=== PATIENT | male | born 1950 | race Caucasian/White ===

== ENCOUNTER 2018-10-08 09:47 | Observation (INO) ==
--- NOTE | 2018-10-08 10:04 | Emergency Department Note ---
Disposition Clinical Impression: Neurological deficit present Disposition: Admitted As Inpatient Condition: Good Time of Disposition: 10:04 General Adult HPI - General Chief complaint: ED Altered Mental Status Stated complaint: Altered mental status Time Seen by Provider: 10/08/18 09:56 - Related Data Home Medications Medication Instructions Recorded Confirmed Acetaminophen [Non-Aspirin] 650 mg PO Q4H PRN 05/26/18 07/29/18 Bisacodyl [Dulcolax] 10 mg RC HS PRN 05/26/18 07/29/18 Divalproex Sodium [Depakote 500 mg PO TID 05/26/18 07/29/18 Sprinkle] Ibuprofen [Ibu-200] 400 mg PO Q6H PRN 05/26/18 07/29/18 Lactulose [Enulose] 60 ml PO DAILY 05/26/18 07/29/18 Levothyroxine Sodium [Levoxyl] 125 mcg PO QAM 05/26/18 07/29/18 Metoprolol [Lopressor] 25 mg PO BID 05/26/18 07/29/18 Paliperidone [Invega] 3 mg PO QAM 05/26/18 07/29/18 Ranitidine HCl [Acid License Issuer] 150 mg PO DAILY@1500 05/26/18 07/29/18 Sodium Chloride [Sodium Chloride 1 gm PO BID 05/26/18 07/29/18 Tab] levETIRAcetam [Keppra] 250 mg PO BID 05/26/18 07/29/18 Aspirin 81 mg PO DAILY 07/29/18 07/29/18 Buspirone HCl [Buspar] 12.5 mg PO BID 07/29/18 07/29/18 Calcium Carbonate/Vitamin D3 1 tab PO BID 07/29/18 07/29/18 [Oyster Shell Calcium-Vit D Tab] carBAMazepine [CarBAMazepine] 100 mg PO TID 07/29/18 07/29/18 diazePAM [Valium] 10 mg PO DAILY PRN 07/29/18 07/29/18 traZODone [TraZODone] 50 mg PO HS 07/29/18 07/29/18 Allergies Allergy/AdvReac Type Severity Reaction Status Date / Time benzoin Allergy Mild See Verified 08/18/18 09:58 Comments cephalexin [From Keflex] Allergy See Verified 08/18/18 09:58 Comments Fish Containing Products Allergy See Verified 08/18/18 09:58 Comments fish derived Allergy See Verified 08/18/18 09:58 Comments fish oil Allergy See Verified 08/18/18 09:58 Comments fluphenazine [From Prolixin] Allergy Redness of Verified 08/18/18 09:58 Skin povidone-iodine Allergy See Verified 08/18/18 09:58 [From Betadine] Comments soap [From Betadine] Allergy See Verified 08/18/18 09:58 Comments shellfish derived AdvReac See Verified 08/18/18 09:58 Comments triethanolamine AdvReac See Verified 08/18/18 09:58 [From Cerumenex] Comments Past Medical History - Past Medical History Medical history: Reports: non-contributory, hypertension, seizures, thyroid disease, other Surgical history: Reports: non-contributory Psychiatric history: Reports: no psych history - Social History Smoking Status: Never smoker Smokeless Tobacco Status: No Alcohol use: Reports: none Drug use: Reports: none, unknown Attestation Statement - Attestation Attestation: I examined this patient and my medical decision-making was reviewed with the Resident Physician. I agree with the documented findings, disposition and treatment plan as described except to the extent set forth below. 68 year old male with developmental delay and on numerous medicatiosn for pysch related issues comes from [facility] after being dropped off this morning from his home. Last known well was indicated to be 15 comsec manager although upon reconfirmation with home facility it appears that he went to bed ok, and wokeup this mornign with these symptoms. STROKE ALERT had already been put into progress. Lindsey is a difficult historian secondary to developmental delay. It appears that his baseline per care facility is a,bulatory and today he was experincing a drift to the right side when he was walking. It appers that he otheriwse has a left sided facial droop and riht sided weakness. Lindsey is moving his left side without problems but his right side is otherwise contracted and it is difficult to assess if this is chronic or not. Mila otherwise has a history of TIAs and CVAs accordig to care facilty. Decision will be to admit, huang not a candidate for tpa
[2018-10-08 10:29] LABS: Hematocrit 38.2 % (37.5-50.1); Hemoglobin 12.6 g/dL (12.9-16.9); Immature Platelets 2.2 % (1.1-6.1); Mean Corpuscular Hemoglobin 33.2 pg (28.0-33.3); Mean Corpuscular Volume 100.5 fL (83.0-100.0); Mean Platelet Volume 9.9 fL (9.4-12.4); Red Blood Count 3.8 M/mcL (4.19-5.50); Red Cell Distribution Width 11.8 % (11.5-14.5); White Blood Count 7.9 K/mcL (4.3-11.1)
[2018-10-08 10:33] LABS: Prothrombin Time 11.1 Seconds (9.4-12.1)
[2018-10-08 10:36] LABS: Activated Partial Thrombo Time 27.2 Seconds (26.0-36.0)
[2018-10-08] MEDS ORDERED: *HR* LORazepam 2 MG/ML VIAL IVP ONE ×2 (10:43→19:38)
--- NOTE | 2018-10-08 10:44 | Emergency Department Note ---
Disposition Clinical Impression: Neurological deficit present Disposition: Admitted As Inpatient Condition: Good Forms: ED Satisfaction Letter Time of Disposition: 12:47 General Adult HPI - General Chief complaint: ED Neuro Symptoms/Deficit Stated complaint: Altered mental status Time Seen by Provider: 10/08/18 09:56 Source: patient, EMS Limitations: no limitations - History of Present Illness HPI Narrative: Mr. Allen is a 68-year-old male who presented to the ED from his adult daycare due to reported gait difficulty and drooping of his face. Per nursing facility from outpatient daycare reported he was last seen normal around 9 PM yesterday they are unsure when his symptoms started. She previously was noted to have similar symptoms involving the opposite side of his body recently which resolved within hours. He was scheduled for outpatient MRI, but due to his new symptoms developing he was presented to the ED. Due to previous history of MRDD is a poor historian unable to really any information. He does have history of seizures no previous history known history of CVA. No recently observed seizure-like activity.Information was obtained from EMS and his outpatient nursing facility. Pain Scale: 0 - Related Data Home Medications Medication Instructions Recorded Confirmed Divalproex Sodium [Depakote 500 mg PO TID 05/26/18 10/08/18 Sprinkle] Levothyroxine Sodium [Levoxyl] 125 mcg PO QAM 05/26/18 10/08/18 Metoprolol [Lopressor] 25 mg PO BID 05/26/18 10/08/18 Paliperidone [Invega] 1.5 mg PO QAM 05/26/18 10/08/18 Ranitidine HCl [Acid Gelatin Powder Mixer] 150 mg PO DAILY@1500 05/26/18 10/08/18 Sodium Chloride [Sodium Chloride 1 gm PO BID 05/26/18 10/08/18 Tab] levETIRAcetam [Keppra] 250 mg PO BID 05/26/18 10/08/18 Aspirin 81 mg PO DAILY 07/29/18 10/08/18 Buspirone HCl [Buspar] 12.5 mg PO BID 07/29/18 10/08/18 Calcium Carbonate/Vitamin D3 1 tab PO BID 07/29/18 10/08/18 [Oyster Shell Calcium-Vit D Tab] carBAMazepine [CarBAMazepine] 100 mg PO TID 07/29/18 10/08/18 Lactulose [Enulose] 60 ml PO BID 10/08/18 10/08/18 Allergies Allergy/AdvReac Type Severity Reaction Status Date / Time benzoin Allergy Mild See Verified 08/18/18 09:58 Comments cephalexin [From Keflex] Allergy See Verified 08/18/18 09:58 Comments Fish Containing Products Allergy See Verified 08/18/18 09:58 Comments fish derived Allergy See Verified 08/18/18 09:58 Comments fish oil Allergy See Verified 08/18/18 09:58 Comments fluphenazine [From Prolixin] Allergy Redness of Verified 08/18/18 09:58 Skin povidone-iodine Allergy See Verified 08/18/18 09:58 [From Betadine] Comments soap [From Betadine] Allergy See Verified 08/18/18 09:58 Comments shellfish derived AdvReac See Verified 08/18/18 09:58 Comments triethanolamine AdvReac See Verified 08/18/18 09:58 [From Cerumenex] Comments Review of Systems: Review of systems provided by EMS and outpatient nursing facility. Limitations: ROS unobtainable due to patients medical condition Constitutional: Reports: weakness. Denies: fever, chills Eyes: Reports: other (No recent changes support). Denies: eye pain, vision change Cardiovascular: Denies: chest pain, palpitations, dyspnea on exertion Respiratory: Denies: cough, wheezes Gastrointestinal: Denies: abdominal pain, nausea, vomiting Genitourinary: Denies: hematuria Musculoskeletal: Denies: back pain, joint swelling Integumentary: Denies: rash Neurological: Reports: weakness, abnormal gait Psychiatric: Reports: anxiety Past Medical History - Past Medical History Medical history: Reports: non-contributory, hypertension, seizures, thyroid disease, other Surgical history: Reports: non-contributory Psychiatric history: Reports: no psych history - Social History Smoking Status: Never smoker Smokeless Tobacco Status: No Alcohol use: Reports: none Drug use: Reports: none, unknown Physical Exam - General Limitations: no limitations General appearance: alert, in no apparent distress, other (nonverbal) - Head Head exam: atraumatic, normocephalic - Eye Eye exam: Present: other (no pupil visualized in right eye). Absent: scleral icterus - ENT ENT exam: normal exam, normal oropharynx - Neck Neck exam: Present: normal inspection, full ROM - Chest Chest inspection: Present: normal inspection, symmetric chest wall rise. Absent: tenderness - Respiratory Respiratory exam: Present: normal lung sounds bilaterally. Absent: respiratory distress, wheezes - Cardiovascular Cardiovascular exam: Present: regular rate, normal rhythm, +S1, +S2 - Abdominal Exam Abdominal exam: Present: soft, Non-Tender. Absent: distention, guarding, rigidity - Extremities Exam Extremities exam: Present: normal inspection, other (Decreased movement of right leg). Absent: tenderness, pedal edema, joint swelling - Neurological Exam Neurological exam: Present: alert, oriented X3, other (Alert but not oriented to person place or time. Right sided facial drop and left sided weakness.) - Psychiatric Psychiatric exam: Present: normal affect, normal mood, anxious - Skin Skin exam: Present: warm, dry, intact Course Vital Signs Temperature 98.5 F 10/08/18 09:55 Pulse Rate 93 10/08/18 09:55 Respiratory Rate 22 10/08/18 09:55 Blood Pressure 162/85 10/08/18 09:55 O2 Sat by Pulse Oximetry 97 10/08/18 09:55 Temperature 98.5 F 10/08/18 09:55 Pulse Rate 77 10/08/18 11:35 Respiratory Rate 18 10/08/18 11:35 Blood Pressure 176/84 10/08/18 11:35 O2 Sat by Pulse Oximetry 97 10/08/18 11:35 Oxygen Delivery Oxygen Delivery Room Air Medical Decision Making - [facility] Narrative Medical decision making narrative: Alejandro is a 68-year-old male presented to the ED from outpatient adult daycare due to gait changes and drooping of his face. He was last seen well at 9 PM yesterday. Nursing facility is unsure of any recent falls. He does have MRDD and unable to provide any history. Distally has history of seizure and has been taking his medications as prescribed. No recent seizures observed. Stroke alert was called. Head CT of the head which did not show any acute intracranial abnormalities. [facility] stroke team evaluated the patient. Dylan did not believe his symptoms were secondary to a stroke and thought it could be secondary to possible previous seizure or unknown cause given his significant past medical history of MRDD. They suggested observing him for 24 hours and would benefit from outpatient versus inpatient MRI. - Medical Records Medical records reviewed: Yes I reviewed the patient's medical records. - Lab Data Lab results reviewed: Yes I reviewed the patient's lab results. Result diagrams: 10/08/18 10:18 10/08/18 10:23 Lab Results 10/08/18 10/08/18 10/08/18 Range/Units 09:54 10:18 10:18 WBC 7.9 (4.3-11.1) K/mcL RBC 3.80 L (4.19-5.50) M/mcL Hgb 12.6 L (12.9-16.9) g/dL Hct 38.2 (37.5-50.1) % MCV 100.5 H (83.0-100.0) fL MCH 33.2 (28.0-33.3) pg MCHC 33.0 (31.6-35.5) g/dL RDW 11.8 (11.5-14.5) % Plt Count 152 (140-400) K/mcL MPV 9.9 (9.4-12.4) fL Immature Plt Fraction 2.2 (1.1-6.1) % PT 11.1 (9.4-12.1) Seconds INR 1.0 APTT 27.2 (26.0-36.0) Seconds Sodium (136-145) mEq/L Potassium (3.5-5.1) mEq/L Chloride (98-107) mEq/L Carbon Dioxide (23-29) mEq/L BUN (8-23) mg/dL Creatinine (0.70-1.30) mg/dL Est GFR ( Amer) (> 60) Est GFR (Non-Af Amer) (> 60) BUN/Creatinine Ratio (6-26) Glucose (70-105) mg/dL POC Glucose 105 H (70-99) mg/dL Calculated Osmolality (280-300) Calcium (8.6-10.3) mg/dL Troponin I (< 0.04) ng/mL Urine Color (Yellow) Urine Clarity (Clear) Urine pH (5.0-8.0) pH Units Ur Specific [place] (1.010-1.025) Urine Protein (Neg-Trace) mg/dL Urine Glucose (UA) (Normal) mg/dL Urine Ketones (Negative) mg/dL Urine Blood (Negative) Urine Nitrite (Negative) Urine Bilirubin (Negative) Urine Urobilinogen (Normal) mg/dL Ur Leukocyte Esterase (Negative) Ur Culture Indicated? (NO) Urine Opiates Screen (Sdipdu=131) ng/mL Ur Barbiturates Screen (Pfzjue=924) ng/mL Ur Phencyclidine Scrn (Cutoff=25) ng/mL Ur Amphetamines Screen (Ojrcqx=5004) ng/mL U Benzodiazepines Scrn (Cwibjt=024) ng/mL Urine Cocaine Screen (Cutoff= 300) ng/mL U Marijuana (THC) Screen (Cutoff = 50) ng/mL Ur Drug Screen Interp Ethyl Alcohol (Less than 10) mg/dL 10/08/18 10/08/18 10/08/18 Range/Units 10:23 11:03 11:03 WBC (4.3-11.1) K/mcL RBC (4.19-5.50) M/mcL Hgb (12.9-16.9) g/dL Hct (37.5-50.1) % MCV (83.0-100.0) fL MCH (28.0-33.3) pg MCHC (31.6-35.5) g/dL RDW (11.5-14.5) % Plt Count (140-400) K/mcL MPV (9.4-12.4) fL Immature Plt Fraction (1.1-6.1) % PT (9.4-12.1) Seconds INR APTT (26.0-36.0) Seconds Sodium 141 (136-145) mEq/L Potassium 4.2 (3.5-5.1) mEq/L Chloride 108 H (98-107) mEq/L Carbon Dioxide 27 (23-29) mEq/L BUN 31 H (8-23) mg/dL Creatinine 0.75 (0.70-1.30) mg/dL Est GFR ( Amer) > 60 (> 60) Est GFR (Non-Af Amer) > 60 (> 60) BUN/Creatinine Ratio 41 H (6-26) Glucose 90 (70-105) mg/dL POC Glucose (70-99) mg/dL Calculated Osmolality 298 (280-300) Calcium 9.4 (8.6-10.3) mg/dL Troponin I < 0.03 (< 0.04) ng/mL Urine Color Yellow (Yellow) Urine Clarity Clear (Clear) Urine pH 6.0 (5.0-8.0) pH Units Ur Specific [place] 1.008 L (1.010-1.025) Urine Protein Negative (Neg-Trace) mg/dL Urine Glucose (UA) Normal (Normal) mg/dL Urine Ketones Negative (Negative) mg/dL Urine Blood Negative (Negative) Urine Nitrite Negative (Negative) Urine Bilirubin Negative (Negative) Urine Urobilinogen Normal (Normal) mg/dL Ur Leukocyte Esterase Negative (Negative) Ur Culture Indicated? NO (NO) Urine Opiates Screen Negative (Ygsoww=048) ng/mL Ur Barbiturates Screen Negative (Uxotss=503) ng/mL Ur Phencyclidine Scrn Negative (Cutoff=25) ng/mL Ur Amphetamines Screen Negative (Vtbapo=7122) ng/mL U Benzodiazepines Scrn Negative (Sizanf=772) ng/mL Urine Cocaine Screen Negative (Cutoff= 300) ng/mL U Marijuana (THC) Screen Negative (Cutoff = 50) ng/mL Ur Drug Screen Interp See Below Ethyl Alcohol < 10 (Less than 10) mg/dL - Radiology Data Radiology results reviewed: Yes I reviewed the patient's radiology results.
[2018-10-08 10:55] LABS: BUN/Creatinine Ratio 41 (6-26); Blood Urea Nitrogen 31 mg/dL (8-23); Calcium 9.4 mg/dL (8.6-10.3); Carbon Dioxide 27 mEq/L (23-29); Chloride 108 mEq/L (98-107); Ethanol < 10 mg/dL (Less than 10); Glucose 90 mg/dL (70-105); Osmolality,Calculated 298 (280-300); Potassium 4.2 mEq/L (3.5-5.1); Sodium 141 mEq/L (136-145); eGFR For African Americans > 60 (> 60); eGFR For Non-African Americans > 60 (> 60)
[2018-10-08 10:56] LABS: Troponin I < 0.03 ng/mL (< 0.04)
[2018-10-08 11:13] LABS: Bilirubin,Urine Negative (Negative); Blood,Urine Negative (Negative); Clarity,Urine Clear (Clear); Color,Urine Yellow (Yellow); Glucose,Urine (UA) Normal (Normal); Ketones,Urine Negative (Negative); Leukocyte Esterase,Urine Negative (Negative); Nitrite,Urine Negative (Negative); Protein,Urine Negative (Neg-Trace); Specific Gravity,Urine 1.008 (1.010-1.025); Urobilinogen,Urine Normal (Normal)
[2018-10-08 11:22] LABS: Amphetamine Screen,Urine Negative ng/mL (Cutoff=1000); Barbiturate Screen,Urine Negative ng/mL (Cutoff=200); Benzodiazepines Screen,Urine Negative ng/mL (Cutoff=200); Cannabinoid Screen,Urine Negative ng/mL (Cutoff = 50); Cocaine Screen,Urine Negative ng/mL (Cutoff= 300); Opiate Screen,Urine Negative ng/mL (Cutoff=300); Phencyclidine Screen,Urine Negative ng/mL (Cutoff=25)
[2018-10-08] MEDS ORDERED: Naloxone 0.4 MG/ML INJ IVP PRN (13:47)
[2018-10-08] MEDS ORDERED: Ondansetron 4 MG/2 ML VIAL IVP PRN (13:47)
--- NOTE | 2018-10-08 14:17 | Internal Med History&Physical ---
Date of Encounter: 10/08/18 Time of Encounter: 13:30 Internal Medicine - H&P: HPI Chief complaint: Left facial droop, right-sided weakness Admitted From: Home History of present illness: Mr. Allen is a 68 year old male with hx of MRDD, seizure, ?CVA/TIA, hypertension, who presented from [facility] due to concern of left-sided facial droop and unsteady gait. No history is obtainable from the pt as he is non- verbal at baseline hence further history was obtained from Carina Seo who is listed as emergency contact. She states that since July of this year, he has been experiencing frequent episodes of L sided facial droop and foaming around his mouth. It would resolve in few minutes but was recurring more frequently for the past few days hence was brought to the ED for further evaluation. No episodes of convulsion, loss of bowel/bladder function, or uprolling of the eyes noted. She does not recall any recent illness for patient. Patient has contractures of the upper extremities and is unable to participate in any neurological exam due to inability to follow commands. In the ED, he was afebrile and hemodynamically stable. Labwork was unremarkable including CBC, BMP, troponin, urinalysis, and urine drug screen. Head CT did not show any acute intracranial abnormality. Although EKG was reported as Afib, it contained a lot of baseline artifcats and R-R interval looks regular. Patient was admitted for further management. Past Med Surg Social Fam HX - Past Medical History Medical history: non-contributory, hypertension, seizures, thyroid disease, other Additional medical history: PICA, blind in Right eye. Psychiatric history: no psych history - Past Surgical History Surgical History: non-contributory - Social History Smoking Status: Never smoker Smokeless Tobacco Status: No Alcohol use: none Drug use: none, unknown - Additional Family History Additional family history: Unable to obtain due to mental status Internal Medicine - H&P: Meds Divalproex Sodium [Depakote Sprinkle] 500 mg PO TID 05/26/18 [History] Levothyroxine Sodium [Levoxyl] 125 mcg PO QAM 05/26/18 [History] Metoprolol [Lopressor] 25 mg PO BID 05/26/18 [History] Paliperidone [Invega] 1.5 mg PO QAM 05/26/18 [History] Ranitidine HCl [Acid Real Estate Account Executive] 150 mg PO DAILY@1500 05/26/18 [History] Sodium Chloride [Sodium Chloride Tab] 1 gm PO BID 05/26/18 [History] levETIRAcetam [Keppra] 250 mg PO BID 05/26/18 [History] Aspirin 81 mg PO DAILY 07/29/18 [History] Buspirone HCl [Buspar] 12.5 mg PO BID 07/29/18 [History] Calcium Carbonate/Vitamin D3 [Oyster Shell Calcium-Vit D Tab] 1 tab PO BID 07/29/18 [History] carBAMazepine [CarBAMazepine] 100 mg PO TID 07/29/18 [History] Lactulose [Enulose] 60 ml PO BID 10/08/18 [History] Allergy/AdvReac Type Severity Reaction Status Date / Time benzoin Allergy Mild See Verified 08/18/18 09:58 Comments cephalexin [From Keflex] Allergy See Verified 08/18/18 09:58 Comments Fish Containing Products Allergy See Verified 08/18/18 09:58 Comments fish derived Allergy See Verified 08/18/18 09:58 Comments fish oil Allergy See Verified 08/18/18 09:58 Comments fluphenazine [From Prolixin] Allergy Redness of Verified 08/18/18 09:58 Skin povidone-iodine Allergy See Verified 08/18/18 09:58 [From Betadine] Comments soap [From Betadine] Allergy See Verified 08/18/18 09:58 Comments shellfish derived AdvReac See Verified 08/18/18 09:58 Comments triethanolamine AdvReac See Verified 08/18/18 09:58 [From Cerumenex] Comments ROS unobtainable: due to mental status All Systems PM: A 10-system review of systems was performed and is negative for pertinent findings except as documented above in the HPI. - Constitutional Vitals: Temp Pulse Resp BP Pulse Ox 98.5 F 62 14 144/58 100 10/08/18 09:55 10/08/18 13:21 10/08/18 13:21 10/08/18 13:21 10/08/18 13:21 Exam: General: Alert, non-verbal. Appears comfortable. HEENT:pupils equal, round and reactive. Cardiovascular:Normal S1 & S2, No JVD. Pulse regular. Lungs: clear to auscultation, no wheezes/rales Abdomen:Soft, non-tender, no rigidity. Extremities: Contractures of the bilateral upper extremities noted Neurological: Unable to follow commands for full neurological exam but no obvious facial droop seen Skin:Normal color, no rash, no lesions. Pulses:Carotid and radial pulses normal +2. Rest of the physical exam is non contributory Internal Med - H&P Results - Labs CBC & Chem 7: 10/08/18 10:18 10/08/18 10:23 Labs: Short CBC 10/08/18 Range/Units 10:18 WBC 7.9 (4.3-11.1) K/mcL Hgb 12.6 L (12.9-16.9) g/dL Hct 38.2 (37.5-50.1) % Plt Count 152 (140-400) K/mcL BMP 10/08/18 10:23 Sodium 141 Potassium 4.2 Chloride 108 H Carbon Dioxide 27 BUN 31 H Creatinine 0.75 Glucose 90 Calcium 9.4 Cardiac Enzymes 10/08/18 Range/Units 10:23 Troponin I < 0.03 (< 0.04) ng/mL Urine 10/08/18 Range/Units 11:03 Urine Color Yellow (Yellow) Urine Clarity Clear (Clear) Urine pH 6.0 (5.0-8.0) pH Units Ur Specific [place] 1.008 L (1.010-1.025) Urine Protein Negative (Neg-Trace) mg/dL Urine Glucose (UA) Normal (Normal) mg/dL - Impressions ITS Impressions Chest X-Ray 10/08/18 09:57 IMPRESSION: Persistently enlarged cardiomediastinal silhouette. No focal consolidation, pneumothorax, or significant pleural effusion. D/ / Enrique Elizalde MD / Enrique Elizalde MD Interpreting Provider: Enrique Elizalde MD Head CT 10/08/18 09:57 IMPRESSION: No acute intracranial abnormality. Findings were discussed with Dr. Mayo 10:20 a.m. 10/08/2018 D/ / Caio Dinh MD / Caio Dinh MD Interpreting Provider: Caio Dinh MD - Assessment and Plan (1) TIA (transient ischemic attack) Current Visit: Yes Status: Acute Assessment and plan: Patient has been expressing frequent episodes of left-sided facial droop since 07/2018. However, he does also have episodes of foaming around his mouth associated with it that would last a few mins. ?seizure did not get MRI nor carotid doppler done at that time CT head -ve for acute intracranial abnormality will obtain MRI and carotid doppler this time Unable to participate in NIHSS due to mental status telemetry, repeat EKG Add statin to aspirin check A1c. Lipid panel was checked recently in 08/2018 PT/OT consult neuro (2) Seizure Current Visit: Yes Status: Chronic Assessment and plan: His current presentation is also concerning for seizure resume home meds MRI as above Neuro consult (3) HTN (hypertension) Current Visit: No Status: Chronic Assessment and plan: Hold off on home meds allow for permissive hypertension Qualifiers: Hypertension type: unspecified Qualified Code(s): I10 - Essential (primary) hypertension (4) Hypothyroid Current Visit: No Status: Chronic Assessment and plan: Resume home meds Qualifiers: Hypothyroidism type: unspecified Qualified Code(s): E03.9 - Hypothyroidism, unspecified (5) DVT prophylaxis Current Visit: No Status: Acute Assessment and plan: SQ heparin - Summary of Assessment and Plan Summary of Assessment and Plan: Discussed with neurology CHILD CARE ASSOCIATE TEACHER - Time Spent With Patient Total time spent is greater than 50% in coordination of care (as documented) at patient's floor/unit and/or counseling patient: Greater than 35 minutes
--- NOTE | 2018-10-08 14:57 | Neurology - Consult Note ---
<Perry Daniel J - Last Filed: 10/08/18 15:44> Date of Encounter: 10/08/18 Time of Encounter: 14:44 Assessment and Plan (1) Neurological deficit present Current Visit: Yes Status: Acute Presents for evaluation of intermittent left sided facial droop and unsteady gait He is MRDD with chronic encephalopahty and currently lives in a skilled nursing setting His neurological exam is limited by his mental state and he does not follow commands. There is a very mild left facial droop on exam. The left eye occular motility is intact and he will follow me throughout the room. Blind in right eye. Moves all 4 extremities spontaneously and will move them to gentle tactile stimulus. He has a h/o seizures but no seizure activity has been witnessed since admission CT head unremarkable Given his waxing and waning sx we will proceed with a w/u to r/o seizures and an acute neurovascular event PLAN: EEG in the a.m. Check valproate and carbamazepine level now Echocardiogram Carotid Duplex exam MRI brain Agree with ASA, and Statin C/W neurological assessments per protocol Implement seizure precautions Further recommendations pending workup History of Present Illness Chief complaint: intermittent facial droop and unstready gait HPI: Mr. Allen is a 68 year old male with a PMH of MRDD, seizures, CVA/TIA, and HTN who presents from a skilled nursing with a chief complaint of intermittent left- sided facial droop and unsteady gait. It should be noted that the patient is non verbal in the setting of MRDD and there was no skilled nursing technical sales representative present during my exam. Therefore, all information was obtained from provider to provider report and chart review. It is reported that since July of 2018 the patient has been having intermittent left sided facial droop and reported ataxia. Patient is unable to follow commands or participate in the neurologic examination. His B/L upper extremities are contractured but he is able able to somewhat move them. He moves b/l legs spontaneously and will follow this provider throughout the room with intact extraoccular motility. Review of labs are unremarkable, urine toxin screen is negative as is the UA. CT of the head unremarkable for an acute intracranial abnormality. Given waxing and waning sx there is concern for underlying seizure etiology given his hx. Additionally, an acute neurovascular also would need to be ruled out. Past Med Surg Social Fam HX - Past Medical History Medical history: non-contributory, hypertension, seizures, thyroid disease, other Additional medical history: PICA, blind in Right eye. Psychiatric history: no psych history - Past Surgical History Surgical History: non-contributory - Social History Smoking Status: Never smoker Smokeless Tobacco Status: No Alcohol use: none Drug use: none, unknown - Additional Family History Additional family history: Attempted to obtain but unable to d/t MRDD. No skilled nursing technical sales representative present at the time of my assessment. Medications and Allergies Divalproex Sodium [Depakote Sprinkle] 500 mg PO TID 05/26/18 [History] Levothyroxine Sodium [Levoxyl] 125 mcg PO QAM 05/26/18 [History] Metoprolol [Lopressor] 25 mg PO BID 05/26/18 [History] Paliperidone [Invega] 1.5 mg PO QAM 05/26/18 [History] Ranitidine HCl [Acid Technology Solutions Architect] 150 mg PO DAILY@1500 05/26/18 [History] Sodium Chloride [Sodium Chloride Tab] 1 gm PO BID 05/26/18 [History] levETIRAcetam [Keppra] 250 mg PO BID 05/26/18 [History] Aspirin 81 mg PO DAILY 07/29/18 [History] Buspirone HCl [Buspar] 12.5 mg PO BID 07/29/18 [History] Calcium Carbonate/Vitamin D3 [Oyster Shell Calcium-Vit D Tab] 1 tab PO BID 07/29/18 [History] carBAMazepine [CarBAMazepine] 100 mg PO TID 07/29/18 [History] Lactulose [Enulose] 60 ml PO BID 10/08/18 [History] Allergy/AdvReac Type Severity Reaction Status Date / Time benzoin Allergy Mild See Verified 08/18/18 09:58 Comments cephalexin [From Keflex] Allergy See Verified 08/18/18 09:58 Comments Fish Containing Products Allergy See Verified 08/18/18 09:58 Comments fish derived Allergy See Verified 08/18/18 09:58 Comments fish oil Allergy See Verified 08/18/18 09:58 Comments fluphenazine [From Prolixin] Allergy Redness of Verified 08/18/18 09:58 Skin povidone-iodine Allergy See Verified 08/18/18 09:58 [From Betadine] Comments soap [From Betadine] Allergy See Verified 08/18/18 09:58 Comments shellfish derived AdvReac See Verified 08/18/18 09:58 Comments triethanolamine AdvReac See Verified 08/18/18 09:58 [From Cerumenex] Comments ROS unobtainable: due to mental status All Systems: The remainder of the systems were reviewed and are negative Physical Examination - Vital Signs Vital Signs: Initial Vital Signs Temp Pulse Resp BP Pulse Ox 98.5 F 93 22 162/85 97 10/08/18 09:55 10/08/18 09:55 10/08/18 09:55 10/08/18 09:55 10/08/18 09:55 - Exam Exam: Examination: Is complicated by the patient's mental state with a history of MRDD and chronic encephalopathy General Examination: *CONSTITUTIONAL: Awake, alert and nonverbal, no acute distress *GENERAL APPEARANCE OF PATIENT generally ill appearing elderly male *EYES: Left pupil round, reactive to light and accommodation, conjunctiva clear. Right blindness *CARDIOVASCULAR no peripheral edema, distal temperature normal, dorsalis pedis pulses normal. see vital signs Musculoskeletal: *GAIT AND STATION deferred d/t risk for falls *ASSESSMENT OF MUSCLE STRENGTH IN THE UPPER AND LOWER EXTREMITIES bilateral arm contractures but move in a limited ROM spontaneously. He will move B/L legs spontaneously *MUSCLE TONE IN THE UPPER AND LOWER EXTREMITIES bilateral arm contractures Neurological: *ORIENTATION awake and alert and will look at you when calling his name. Otherwise he is nonverbal and unable to follow commands *LANGUAGE FUNCTION nonverbal *CN II optic fundi were normal *CN III,IV, left pupil round and reactive to light and accommodation. Left eye with intact ocular motility. Chronic right eye blindness *CN V, VII very mild left facial droop *CN VIII shows no significant hearing loss on exam *CN XI Although had left and right and follow this provider throughout the room when spoken to *SENSORY EXAMINATION moves all 4 extremities to gentle tactile stimulus *REFLEXES: DTR's were absent diffusely *PAIN LEVEL 0/10 Results - Laboratory Findings CBC and BMP: 10/08/18 10:18 10/08/18 10:23 Abnormal lab findings: Abnormal lab results RBC 3.80 M/mcL (4.19-5.50) L 10/08/18 10:18 Hgb 12.6 g/dL (12.9-16.9) L 10/08/18 10:18 MCV 100.5 fL (83.0-100.0) H 10/08/18 10:18 Chloride 108 mEq/L (98-107) H 10/08/18 10:23 BUN 31 mg/dL (8-23) H 10/08/18 10:23 41 (6-26) H 10/08/18 10:23 POC Glucose 105 mg/dL (70-99) H 10/08/18 09:54 Ur Specific [place] 1.008 (1.010-1.025) L 10/08/18 11:03 - Diagnostic Findings Additional findings: CT/CT stroke alert head wo con IMPRESSION: No acute intracranial abnormality. Consult Discharge Plan - Plan Referrals: Daniela Herring MD [Primary Care Provider] - <KeyKojo - Last Filed: 10/08/18 16:19> Date of Encounter: 10/08/18 Assessment and Plan (1) Neurological deficit present Current Visit: Yes Status: Acute History of Present Illness HPI: Mr. Allen is a 68 year old male All Systems: The remainder of the systems were reviewed and are negative Physical Examination - Vital Signs Vital Signs: Initial Vital Signs Temp Pulse Resp BP Pulse Ox 98.5 F 93 22 162/85 97 10/08/18 09:55 10/08/18 09:55 10/08/18 09:55 10/08/18 09:55 10/08/18 09:55 Results - Laboratory Findings CBC and BMP: 10/08/18 10:18 10/08/18 10:23 Abnormal lab findings: Abnormal lab results RBC 3.80 M/mcL (4.19-5.50) L 10/08/18 10:18 Hgb 12.6 g/dL (12.9-16.9) L 10/08/18 10:18 MCV 100.5 fL (83.0-100.0) H 10/08/18 10:18 Chloride 108 mEq/L (98-107) H 10/08/18 10:23 BUN 31 mg/dL (8-23) H 10/08/18 10:23 41 (6-26) H 10/08/18 10:23 POC Glucose 105 mg/dL (70-99) H 10/08/18 09:54 Ur Specific [place] 1.008 (1.010-1.025) L 10/08/18 11:03
[2018-10-08] MEDS ORDERED: Famotidine 20 MG TABLET PO SCH (15:00)
[2018-10-08] MEDS ORDERED: Perflutren Lipid Microsphere 1.3 ML in 0.9 % Sodium Chloride 8.7 ML IVP ONE (15:38)
--- NOTE | 2018-10-08 16:16 | Electrocardiograph Report ---
[place] [id number] Test Date: 2018-10-08 Pat Name: Chase Allen Department: [id number] Room: [facility] Gender: M [place]iler: : 1950 Requested By: Zonia Mayo Order Number: [id number] Reading MD: Chase Hernandez Measurements Intervals [place] Rate: 80 P: [place]: QRS: -40 QRSD: 127 T: 92 QT: 371 QTc: 428 Interpretive Statements Probable sinus rhythm IVCD, consider atypical RBBB Artifact in lead(s) I II III aVR aVL V1 V2 and baseline wander in lead(s) V1 Electronically Signed On 10-08-2018 16:14:56 EDT by Chase Hernandez
[2018-10-08 16:20] LABS: Carbamazepine (Tegretol) 10 mcg/mL (4-12); Valproate 79 mcg/mL (50-100)
[2018-10-08] MEDS: Divalproex Sodium 125 MG CAPSULE PO SCH ×2 (17:45→20:29)
[2018-10-08] MEDS: CarBAMazepine 100 MG TABLET PO SCH ×2 (17:46→20:30)
[2018-10-08] MEDS: levETIRAcetam 250 MG TABLET PO SCH (20:30)
[2018-10-08] MEDS: Lactulose Oral Soln 20 GM/30 ML UDC PO SCH (20:30)
[2018-10-09 06:15] LABS: Basophils # 0.1 K/mcL (0.0-0.2); Eosinophils # 0.4 K/mcL (0.0-0.6); Eosinophils % 6.9 %; Hematocrit 34.7 % (37.5-50.1); Hemoglobin 11.8 g/dL (12.9-16.9); Immature Granulocytes % 0.8 % (0-4); Lymphocytes % 37.9 %; Mean Corpuscular Volume 96.9 fL (83.0-100.0); Mean Platelet Volume 9.5 fL (9.4-12.4); Monocytes # 0.6 K/mcL (0.0-1.3); Monocytes % 10.5 %; Neutrophils # 2.3 K/mcL (1.6-8.9); Platelet Count 158 K/mcL (140-400); Red Blood Count 3.58 M/mcL (4.19-5.50); Red Cell Distribution Width 11.6 % (11.5-14.5); Segmented Neutrophils % 42.9 %; White Blood Count 5.3 K/mcL (4.3-11.1)
[2018-10-09 06:32] LABS: BUN/Creatinine Ratio 35 (6-26); Blood Urea Nitrogen 24 mg/dL (8-23); Calcium 9.2 mg/dL (8.6-10.3); Carbon Dioxide 28 mEq/L (23-29); Chloride 104 mEq/L (98-107); Glucose 87 mg/dL (70-105); Osmolality,Calculated 295 (280-300); Sodium 141 mEq/L (136-145); eGFR For African Americans > 60 (> 60); eGFR For Non-African Americans > 60 (> 60)
[2018-10-09 07:18] VITALS: BP 119/57
[2018-10-09] MEDS ORDERED: *HR* LORazepam 2 MG/ML VIAL IVP ONE (08:46)
[2018-10-09 08:51] LABS: Estimated Average Glucose 100 mg/dl
[2018-10-09] MEDS: Lactulose Oral Soln 20 GM/30 ML UDC PO SCH (09:00)
[2018-10-09] MEDS: levETIRAcetam 250 MG TABLET PO SCH ×2 (09:00→09:59)
[2018-10-09] MEDS ORDERED: Aspirin 81 MG TAB.CHEW PO SCH (09:00)
[2018-10-09] MEDS ORDERED: PALIPERIDONE 1.5 MG PO SCH (09:00)
[2018-10-09] MEDS: CarBAMazepine 100 MG TABLET PO SCH ×2 (09:00→09:57)
[2018-10-09] MEDS: Divalproex Sodium 125 MG CAPSULE PO SCH ×2 (09:01→09:58)
--- NOTE | 2018-10-09 09:42 | Neurology Progress Note ---
<Perry Daniel J - Last Filed: 10/09/18 09:37> Date of Encounter: 10/09/18 Time of Encounter: 09:37 Assessment and Plan (1) Neurological deficit present Current Visit: Yes Status: Acute Clinically, he remains stable overnight. No return of facial droop and no witnessed seizure activity overnight. An MRI of the brain was completed and was found to be negative for an acute infarct. Echocardiogram did not identify PFO, the carotid duplex study identified nonstenotic plaque in the right carotid however the right carotid was unable to be completed due to the patient's mental status as he is uncooperative. His carbamazepine and Valproate levels were checked and were withing the therapeutic range. He will get an EEG today to evaluate for seizure activity. Neurology will continue to follow PLAN: EEG pending C/W ASA, and Statin C/W neurological assessments per protocol C/W seizure precautions Further recommendations pending the rest of the workup Subjective Principal diagnosis: Concerns for left facial droop, unsteady gait and seizures Interval history: The patient was seen in follow-up at the bedside at the critical decision making unit. Today he is awake, and appears guarded while vigilantly watching me as I walked throughout the room and he is moving all 4 extremities spontaneously. He does not follow commands. He is getting ready to undergo an EEG. There is no assisted sales representative from the [facility] present at this time. Objective - Constitutional Vitals: Temp Pulse Resp BP Pulse Ox 98.1 F 69 16 119/57 95 10/08/18 23:00 10/09/18 07:00 10/09/18 07:00 10/09/18 07:00 10/09/18 07:00 Exam: Examination: Is complicated by the patient's mental state with a history of MRDD and chronic encephalopathy General Examination: *CONSTITUTIONAL: Awake, and nonverbal. He is somewhat agitated today on exam *GENERAL APPEARANCE OF PATIENT generally ill appearing elderly male *EYES: Left pupil round, reactive to light and accommodation, conjunctiva clear. Right blindness *CARDIOVASCULAR no peripheral edema, distal temperature normal, dorsalis pedis pulses normal. see vital signs Musculoskeletal: *GAIT AND STATION deferred d/t risk for falls *ASSESSMENT OF MUSCLE STRENGTH IN THE UPPER AND LOWER EXTREMITIES bilateral arm contractures but he will move then in a limited ROM spontaneously. He will move B/L legs spontaneously *MUSCLE TONE IN THE UPPER AND LOWER EXTREMITIES bilateral arm contractures Neurological: *ORIENTATION awake and alert and will look at you when calling his name. Otherwise he is nonverbal and unable to follow commands *LANGUAGE FUNCTION nonverbal *CN II optic fundi were normal *CN III,IV, left pupil round and reactive to light and accommodation. Left eye with intact ocular motility. Chronic right eye blindness *CN V, VII no facial asymmetry seen *CN VIII shows no significant hearing loss on exam *CN XI He moves his head left and right and follows this provider throughout the room *SENSORY EXAMINATION moves all 4 extremities to gentle tactile stimulus *REFLEXES: DTR's were absent diffusely *PAIN LEVEL 0/10 Results - Laboratory Findings CBC and BMP: 10/09/18 05:48 10/09/18 05:48 Abnormal lab findings: Abnormal lab results RBC 3.58 M/mcL (4.19-5.50) L 10/09/18 05:48 Hgb 11.8 g/dL (12.9-16.9) L 10/09/18 05:48 Hct 34.7 % (37.5-50.1) L 10/09/18 05:48 MCV 100.5 fL (83.0-100.0) H 10/08/18 10:18 Chloride 108 mEq/L (98-107) H 10/08/18 10:23 BUN 24 mg/dL (8-23) H 10/09/18 05:48 0.68 mg/dL (0.70-1.30) L 10/09/18 05:48 35 (6-26) H 10/09/18 05:48 POC Glucose 105 mg/dL (70-99) H 10/08/18 09:54 Ur Specific [place] 1.008 (1.010-1.025) L 10/08/18 11:03 Consult Discharge Plan - Plan Instructions: Hypothyroidism (DC), Chronic Hypertension (DC) Additional Instructions: Discussed with Nurse Winifred, that patient needs out patient MRI of head switched to c-spine per Dr. Rodriguez. Expressed understanding. 3B secretary office clerk attempted to change, unable to. Updated Winifred on medications and testing done. Referrals: Daniela Herring MD [Primary Care Provider] - (appt has been requested. ) Misael Seo DO [Partnered Physician] - Prescriptions: Atorvastatin [Lipitor] 40 mg PO HS #30 tablet <Kojo Mackey - Last Filed: 10/09/18 14:13> Date of Encounter: 10/09/18 Assessment and Plan (1) Neurological deficit present Current Visit: Yes Status: Acute Objective - Constitutional Vitals: Temp Pulse Resp BP Pulse Ox 98.1 F 69 16 119/57 95 10/08/18 23:00 10/09/18 07:00 10/09/18 07:00 10/09/18 07:00 10/09/18 07:00 Results - Laboratory Findings CBC and BMP: 10/09/18 05:48 10/09/18 05:48 Abnormal lab findings: Abnormal lab results RBC 3.58 M/mcL (4.19-5.50) L 10/09/18 05:48 Hgb 11.8 g/dL (12.9-16.9) L 10/09/18 05:48 Hct 34.7 % (37.5-50.1) L 10/09/18 05:48 MCV 100.5 fL (83.0-100.0) H 10/08/18 10:18 Chloride 108 mEq/L (98-107) H 10/08/18 10:23 BUN 24 mg/dL (8-23) H 10/09/18 05:48 0.68 mg/dL (0.70-1.30) L 10/09/18 05:48 35 (6-26) H 10/09/18 05:48 POC Glucose 105 mg/dL (70-99) H 10/08/18 09:54 Ur Specific [place] 1.008 (1.010-1.025) L 10/08/18 11:03
--- NOTE | 2018-10-09 10:05 | EEG/EMG/Oth Biometrics Report ---
EEG Procedure Report Date of procedure: 10/09/18 EEG Procedure: Routine EEG Procedure Note: This EEG was acquired with standard international 10-20 system with EKG recording. The background EEG activity was characterized by the presence of posterior dominant alpha rhythm with the best frequency up to 11 Hz. The background activity was reactive to eye openings. Sleep stages were not identified during this tracing. Drowsiness was characterized by drop off of posterior dominant Alpha rhythm. There are no electrographic seizures identified during this tracing. There are no epileptiform discharges or focal slowing noted during this recording. Photic stimulation produced and produced no abnormalities. Hyperventilation procedure not performed. EKG tracing showed no significant cardiac dysrhythmia. Impression: This is essentially a normal awake and drowsy EEG. Clinical Correlation: Normal EEGs, however, do not exclude epilepsy. Clinical correlation is advised.
[2018-10-09] MEDS ORDERED: Haloperidol Lactate 5 MG/ML VIAL IVP ONE (12:22)
[2018-10-09] MEDS ORDERED: Haloperidol Lactate 5 MG/ML VIAL ONE (12:26)
--- NOTE | 2018-10-09 12:37 | Discharge Summary ---
- NOTES TO OUTPATIENT PROVIDER Notes to Outpatient Provider: Follow up with NEurology as originally scheduled and obtain MRI C-spine instead of MRI brain as it was done while inpatient Orders not resulted at time of discharge: Pending orders 10/08/18 13:50 EKG [ECG 12 lead ECG] [ECG] Stat Date of Encounter: 10/09/18 Time of Encounter: 10:00 - Discharge Diagnosis (1) Neurological deficit present Priority: Primary Status: Acute (2) Seizure Priority: Secondary Status: Chronic (3) HTN (hypertension) Priority: Secondary Status: Chronic Qualifiers: Hypertension type: unspecified Qualified Code(s): I10 - Essential (primary) hypertension (4) Hypothyroid Priority: Secondary Status: Chronic Qualifiers: Hypothyroidism type: unspecified Qualified Code(s): E03.9 - Hypothyroidism, unspecified (5) DVT prophylaxis Priority: Secondary Status: Acute Hospital course: Mr. Allen is a 68 year old male with hx of MRDD, seizure, ?CVA/TIA, hypertension, who presented from long-term due to concern of left-sided facial droop and unsteady gait. He apparently had a similar episode in July this year but could not complete MRI brain and carotid Doppler at that time. MRI brain was done this time and although was limited by motion artifact, no obvious acute stroke was identified. Carotid Doppler showed nonstenotic plaque in the left carotid, R one incomplete due to his mental status and inability to cooperate. Both valproic acid and carbamazepine level were within therapeutic ranges. Seen in consultation with neurology and EEG was performed which was essentially normal. Statin was added for the possibility of TIA and he will be discharged with outpatient Neurology follow-up and MRI C-spine. Discharge discussed with: nurse, case management, pre owned sales consultant - Time Spent with Patient Total time spent providing and/or coordinating discharge services: 28 mins - Discharge Medications Prescriptions: New Atorvastatin [Lipitor] 40 mg PO HS #30 tablet Continued Sodium Chloride [Sodium Chloride Tab] 1 gm PO BID Metoprolol [Lopressor] 25 mg PO BID Paliperidone [Invega] 1.5 mg PO QAM Ranitidine HCl [Acid Fmd Teacher] 150 mg PO DAILY@1500 Levothyroxine Sodium [Levoxyl] 125 mcg PO QAM levETIRAcetam [Keppra] 250 mg PO BID Divalproex Sodium [Depakote Sprinkle] 500 mg PO TID Calcium Carbonate/Vitamin D3 [Oyster Shell Calcium-Vit D Tab] 1 tab PO BID Aspirin 81 mg PO DAILY Buspirone HCl [Buspar] 12.5 mg PO BID carBAMazepine [CarBAMazepine] 100 mg PO TID Lactulose [Enulose] 60 ml PO BID Home Medications: Divalproex Sodium [Depakote Sprinkle] 500 mg PO TID 05/26/18 [History] Levothyroxine Sodium [Levoxyl] 125 mcg PO QAM 05/26/18 [History] Metoprolol [Lopressor] 25 mg PO BID 05/26/18 [History] Paliperidone [Invega] 1.5 mg PO QAM 05/26/18 [History] Ranitidine HCl [Acid Fmd Teacher] 150 mg PO DAILY@1500 05/26/18 [History] Sodium Chloride [Sodium Chloride Tab] 1 gm PO BID 05/26/18 [History] levETIRAcetam [Keppra] 250 mg PO BID 05/26/18 [History] Aspirin 81 mg PO DAILY 07/29/18 [History] Buspirone HCl [Buspar] 12.5 mg PO BID 07/29/18 [History] Calcium Carbonate/Vitamin D3 [Oyster Shell Calcium-Vit D Tab] 1 tab PO BID 07/29/18 [History] carBAMazepine [CarBAMazepine] 100 mg PO TID 07/29/18 [History] Lactulose [Enulose] 60 ml PO BID 10/08/18 [History] Atorvastatin [Lipitor] 40 mg PO HS #30 tablet 10/09/18 [Rx] Allergies/Adverse Reactions: Allergy/AdvReac Type Severity Reaction Status Date / Time benzoin Allergy Mild See Verified 08/18/18 09:58 Comments cephalexin [From Keflex] Allergy See Verified 08/18/18 09:58 Comments Fish Containing Products Allergy See Verified 08/18/18 09:58 Comments fish derived Allergy See Verified 08/18/18 09:58 Comments fish oil Allergy See Verified 08/18/18 09:58 Comments fluphenazine [From Prolixin] Allergy Redness of Verified 08/18/18 09:58 Skin povidone-iodine Allergy See Verified 08/18/18 09:58 [From Betadine] Comments soap [From Betadine] Allergy See Verified 08/18/18 09:58 Comments shellfish derived AdvReac See Verified 08/18/18 09:58 Comments triethanolamine AdvReac See Verified 08/18/18 09:58 [From Cerumenex] Comments Date of admission: 10/08/18 13:16 Primary care physician: Daniela Herring Consults: 10/08/18 13:48 Consult to Physical Therapy [CONS] Routine Comment: Evaluate, develop and implement POC Reason for Consult: ?CVA Does patient have active BEDREST order?: No Is patient medically & hemodynamically stable?: Yes 10/08/18 14:14 Consult to Neurology [CONS] Routine Consulting Provider: Neurology [facility] Reason for Consult: recurrent L facial droop and unsteady gait ?seizure vs. cva Call Completed: Yes 10/09/18 11:52 Consult to Interpret Exam [CONS] Routine Consulting Provider: Kojo Mackey Consult to Interpret Exam: Interpret EEG - Constitutional Vitals: Temp Pulse Resp BP Pulse Ox 98.1 F 69 16 119/57 95 10/08/18 23:00 10/09/18 07:00 10/09/18 07:00 10/09/18 07:00 10/09/18 07:00 Exam: General: Alert, non-verbal. Appears comfortable. HEENT:pupils equal, round and reactive. Cardiovascular:Normal S1 & S2, No JVD. Pulse regular. Lungs: clear to auscultation, no wheezes/rales Abdomen:Soft, non-tender, no rigidity. Extremities: Contractures of the bilateral upper extremities noted Neurological: Unable to follow commands for full neurological exam but no obvious facial droop seen - Patient Status Disposition: Home, Self-Care Condition: Good Overall status at discharge: patient is progressing back to baseline - Discharge Instructions Instructions: Chronic Hypertension (DC), Hypothyroidism (DC) Follow Up With: Daniela Herring MD [Primary Care Provider] - Misael Seo DO [Partnered Physician] - - Diet and Activity Activity: resume usual activities as tolerated Diet: regular diet
--- NOTE | 2018-10-09 13:40 | Physician Discharge Referral ---
Home Health/Hosp Referral Info Transfer to: Home Health Provider in Charge Post Discharge: PCP - Diagnosis (1) Neurological deficit present Priority: Primary Status: Acute (2) Seizure Priority: Secondary Status: Chronic (3) HTN (hypertension) Priority: Secondary Status: Chronic (4) Hypothyroid Priority: Secondary Status: Chronic (5) DVT prophylaxis Priority: Secondary Status: Acute - Respiratory Orders Smoking Cessation: Smoking cessation has been advised. For more information, call the [place] Tobacco Quit Line at 8-099-WUHA-NOW. - Services Needed Following services are medically necessary services: Physical Therapy, Occupational Therapy - Transfer Medications Prescriptions: Atorvastatin [Lipitor] 40 mg PO HS #30 tablet Home Medications: Divalproex Sodium [Depakote Sprinkle] 500 mg PO TID 05/26/18 [History] Levothyroxine Sodium [Levoxyl] 125 mcg PO QAM 05/26/18 [History] Metoprolol [Lopressor] 25 mg PO BID 05/26/18 [History] Paliperidone [Invega] 1.5 mg PO QAM 05/26/18 [History] Ranitidine HCl [Acid Photogeologist] 150 mg PO DAILY@1500 05/26/18 [History] Sodium Chloride [Sodium Chloride Tab] 1 gm PO BID 05/26/18 [History] levETIRAcetam [Keppra] 250 mg PO BID 05/26/18 [History] Aspirin 81 mg PO DAILY 07/29/18 [History] Buspirone HCl [Buspar] 12.5 mg PO BID 07/29/18 [History] Calcium Carbonate/Vitamin D3 [Oyster Shell Calcium-Vit D Tab] 1 tab PO BID 07/29/18 [History] carBAMazepine [CarBAMazepine] 100 mg PO TID 07/29/18 [History] Lactulose [Enulose] 60 ml PO BID 10/08/18 [History] Atorvastatin [Lipitor] 40 mg PO HS #30 tablet 10/09/18 [Rx] Allergies/Adverse Reactions: Allergy/AdvReac Type Severity Reaction Status Date / Time benzoin Allergy Mild See Verified 08/18/18 09:58 Comments cephalexin [From Keflex] Allergy See Verified 08/18/18 09:58 Comments Fish Containing Products Allergy See Verified 08/18/18 09:58 Comments fish derived Allergy See Verified 08/18/18 09:58 Comments fish oil Allergy See Verified 08/18/18 09:58 Comments fluphenazine [From Prolixin] Allergy Redness of Verified 08/18/18 09:58 Skin povidone-iodine Allergy See Verified 08/18/18 09:58 [From Betadine] Comments soap [From Betadine] Allergy See Verified 08/18/18 09:58 Comments shellfish derived AdvReac See Verified 08/18/18 09:58 Comments triethanolamine AdvReac See Verified 08/18/18 09:58 [From Cerumenex] Comments Certification: Further, I certify that my clinical findings support that this patient is homebound (i.e. absences from home require considerable and taxing effort and are for medical reasons or mandaeism services or infrequently or short duration when for other reasons) because: Homebound Reason: Patient requires assistance of a person or device to safely leave home Attestation: My signature below is to certify that this patient is under my care and that I, or nurse practitioner, or a physician's metal moulder's assistant working with me, has a [id number] encounter with this patient.
== END 2018-10-09 14:37 | disposition home or self-care (01) ==
LOC: CDU 09:47 → EMEROOARM 09:47 → SUATTDRO 13:16 → CDU 13:35 → 3BNU 10-09 12:31
PROVIDERS: ADMIT Internal Medicine Nephrology; ATTEND Internal Medicine

== ENCOUNTER 2021-08-04 22:39 | Inpatient (IN) ==
[2021-08-04] MEDS ORDERED: methylPREDNISolone 125 MG/2 ML VIAL IVP ONE (22:45)
[2021-08-04] MEDS ORDERED: Ipratropium/Albuterol Neb 3 ML IH ONE (22:45)
[2021-08-04] MEDS ORDERED: 0.9 % Sodium Chloride 1,000 ML IVC ONE (22:45)
[2021-08-04 23:35] LABS: Influenza A PCR Negative (Negative); Influenza B PCR Negative (Negative); Resp. Syncytial Virus PCR Negative (Negative)
[2021-08-04 23:41] LABS: SARS-CoV-2 by PCR (In House) Negative (Negative)
[2021-08-05 00:33] LABS: Red Cell Distribution Width 12.8 % (11.5-14.5); White Blood Count 6.5 K/mcL (4.3-11.1)
[2021-08-05 00:36] LABS: Hematocrit 37.5 % (37.5-50.1); Hemoglobin 11.9 g/dL (12.9-16.9); Immature Platelets 5.5 % (1.1-6.1); Mean Corpuscular HGB Conc 31.7 g/dL (31.6-35.5); Mean Corpuscular Hemoglobin 33.4 pg (28.0-33.3); Mean Corpuscular Volume 105.3 fL (83.0-100.0); Mean Platelet Volume 11.1 fL (9.4-12.4); Red Blood Count 3.56 M/mcL (4.19-5.50)
[2021-08-05 00:49] LABS: Bilirubin,Urine Negative (Negative); Blood,Urine Negative (Negative); Clarity,Urine Clear (Clear); Color,Urine Orange (Yellow); Glucose,Urine (UA) Normal (Normal); Hyaline Casts,Urine Few per lpf (None Seen); Ketones,Urine Negative (Negative); Leukocyte Esterase,Urine Negative (Negative); Mucus,Urine Few per lpf (None-Few); Nitrite,Urine Negative (Negative); Protein,Urine 30 mg/dL (Neg-Trace); RBC,Urine 0-3 per hpf (0-3); Specific Gravity,Urine 1.029 (1.010-1.025)
[2021-08-05 00:55] LABS: Alanine Aminotransferase 6 Units/L (7-52); Albumin 3.1 g/dL (3.5-5.7); Albumin/Globulin Ratio 0.9 (1.1-2.2); Alkaline Phosphatase 40 Units/L (34-104); Aspartate Amino Transferase 30 Units/L (13-39); BUN/Creatinine Ratio 19 (6-26); Bilirubin,Indirect 0.5 mg/dL (0.0-1.0); Bilirubin,Total 0.5 mg/dL (0.3-1.0); Blood Urea Nitrogen 46 mg/dL (8-23); Calcium 9.1 mg/dL (8.6-10.3); Carbon Dioxide 21 mEq/L (23-29); Chloride 106 mEq/L (98-107); Globulin 3.6 g/dL (2.4-3.5); Glucose 113 mg/dL (70-105); Osmolality,Calculated 301 (280-300); Potassium 6.1 mEq/L (3.5-5.1); Sodium 139 mEq/L (136-145); Total Protein 6.7 g/dL (6.4-8.9); Troponin I < 0.03 ng/mL (< 0.04); eGFR For African Americans 33 (> 60); eGFR For Non-African Americans 27 (> 60)
[2021-08-05] MEDS: Piperacillin/Tazobactam 3.375 GM in 0.9 % Sodium Chloride Mini Bag 100 ML IVPB ONE (01:08)
[2021-08-05 01:09] LABS: INR 1.2; Prothrombin Time 13.5 Seconds (9.4-12.1)
[2021-08-05 01:12] LABS: Activated Partial Thrombo Time 30.1 Seconds (26.0-36.0)
[2021-08-05 01:18] LABS: Platelet Count 70 K/mcL (140-400)
[2021-08-05 01:32] LABS: Lymphocytes # 0.8 K/mcL (0.6-4.6); Monocytes # 0.7 K/mcL (0.0-1.3); Neutrophils # 5.1 K/mcL (1.6-8.9)
[2021-08-05 01:33] LABS: Platelet Estimate Decreased (Normal)
[2021-08-05 01:34] LABS: Poikilocytosis 1+ (Not Present)
[2021-08-05 03:23] LABS: ABG Base Excess 2 mEq/L (-2 to 3); ABG HCO3 26 mEq/L (21-27); ABG Oxygen Saturation 100 % (95-98); ABG PCO2 40 mmHg (35-45); ABG PH 7.43 pH Units (7.32-7.45); ABG PO2 435 mmHg (85-104); ABG TCO2 27 mEq/L (20-26)
[2021-08-05] MEDS ORDERED: Insulin Human Regular 5 UNIT in 0.9 % Sodium Chloride 10 ML IV ONE (03:31)
[2021-08-05] MEDS ORDERED: *HR* Dextrose 50 % in Water (Syg) 50 ML SYRINGE IVP ONE (03:31)
[2021-08-05] MEDS ORDERED: Melatonin 3 MG TABLET PO PRN (04:38)
[2021-08-05] MEDS ORDERED: Acetaminophen 325 MG TABLET PO PRN (04:38)
[2021-08-05] MEDS ORDERED: Naloxone 0.4 MG/ML INJ IVP PRN (04:38)
[2021-08-05] MEDS ORDERED: Ondansetron 4 MG/2 ML VIAL IVP PRN (04:38)
[2021-08-05 05:11] LABS: Calcium 8.8 mg/dL (8.6-10.3); Potassium 4.2 mEq/L (3.5-5.1)
[2021-08-05 06:24] LABS: Hemoglobin 11.3 g/dL (12.9-16.9); Red Cell Distribution Width 12.4 % (11.5-14.5)
[2021-08-05 06:26] LABS: Hematocrit 34.8 % (37.5-50.1); Immature Platelets 4.4 % (1.1-6.1); Mean Corpuscular HGB Conc 32.5 g/dL (31.6-35.5); Mean Corpuscular Hemoglobin 33.4 pg (28.0-33.3); Mean Platelet Volume 11.1 fL (9.4-12.4); Red Blood Count 3.38 M/mcL (4.19-5.50); White Blood Count 5.4 K/mcL (4.3-11.1)
[2021-08-05 06:36] LABS: Platelet Count 61 K/mcL (140-400)
[2021-08-05 06:39] LABS: INR 1.2; Prothrombin Time 13.6 Seconds (9.4-12.1)
[2021-08-05 06:50] LABS: Albumin 2.9 g/dL (3.5-5.7); Albumin/Globulin Ratio 0.9 (1.1-2.2); Bilirubin,Total 0.4 mg/dL (0.3-1.0); Calcium 8.6 mg/dL (8.6-10.3); Globulin 3.1 g/dL (2.4-3.5); Magnesium 2.3 mg/dL (1.6-2.6); Phosphorous 4.4 mg/dL (2.7-4.5); Potassium 4.5 mEq/L (3.5-5.1)
[2021-08-05 07:34] LABS: Lymphocytes # 0.9 K/mcL (0.6-4.6); Monocytes # 0.5 K/mcL (0.0-1.3); Neutrophils # 3.9 K/mcL (1.6-8.9); Platelet Estimate Decreased (Normal)
[2021-08-05] MEDS: Piperacillin/Tazobactam 3.375 GM in 0.9 % Sodium Chloride Mini Bag 100 ML IVPB SCH ×3 (07:52→23:01)
[2021-08-05] MEDS: 0.9 % Sodium Chloride 1,000 ML IVC SCH ×3 (07:52→23:00)
[2021-08-05 08:09] LABS: Immature Reticulocyte % 17.1 % (11.0-38.0); Retculocyte # 0.06 M/mcL (0.05-0.10); Reticulocyte % 1.7 % (1.6-2.8)
[2021-08-05 10:23] LABS: Folate 14.4 ng/mL (3.0-16.0)
[2021-08-05 10:25] LABS: Vitamin B12 248 pg/mL (250-1100)
[2021-08-05 16:17] LABS: Procalcitonin 0.18 ng/mL (0.00-0.15)
[2021-08-05] MEDS: Doxycycline 100 MG in 0.9 % Sodium Chloride Mini Bag 100 ML IVPB SCH (16:47)
[2021-08-05 17:12] LABS: Hepatitis B Surface Antigen Nonreactive (Nonreactive)
[2021-08-05 17:41] LABS: Hepatitis B Core IgM Nonreactive (Nonreactive); Hepatitis C Virus Antibody Nonreactive (Nonreactive)
[2021-08-05 17:42] LABS: Hepatitis A Antibody IgM Nonreactive (Nonreactive)
[2021-08-05] MEDS ORDERED: *HR* Heparin 5,000 UNIT/ML VIAL SQ SCH (18:00)
[2021-08-06] MEDS: Doxycycline 100 MG in 0.9 % Sodium Chloride Mini Bag 100 ML IVPB SCH ×2 (04:48→14:13)
[2021-08-06] MEDS: 0.9 % Sodium Chloride 1,000 ML IVC SCH ×2 (04:48→14:13)
[2021-08-06] MEDS ORDERED: GuaiFENesin Liq 200 MG/10 ML UDC PO PRN (10:20)
[2021-08-06] MEDS ORDERED: Bisacodyl 10 MG RECTAL SUPPOSITORY RC PRN (10:20)
[2021-08-06] MEDS ORDERED: Acetaminophen 325 MG TABLET PO PRN (10:20)
[2021-08-06] MEDS ORDERED: Mag Hydrox/Al Hydrox/Simeth 30 ML UDC PO PRN (11:03)
[2021-08-06] MEDS ORDERED: Desitin (Zinc Oxide) Max 57 GM TUBE TP PRN (11:03)
[2021-08-06] MEDS: Piperacillin/Tazobactam 3.375 GM in 0.9 % Sodium Chloride Mini Bag 100 ML IVPB ONE (11:54)
[2021-08-06] MEDS: Piperacillin/Tazobactam 3.375 GM in 0.9 % Sodium Chloride Mini Bag 100 ML IVPB SCH ×2 (11:59→19:43)
[2021-08-06 12:09] LABS: Eosinophils % 0.2 %; Hemoglobin 11.6 g/dL (12.9-16.9); Immature Granulocytes % 0.5 % (0-4); Red Cell Distribution Width 12.2 % (11.5-14.5)
[2021-08-06 12:11] LABS: Basophils % 0.4 %; Lymphocytes # 1.1 K/mcL (0.6-4.6); Mean Corpuscular HGB Conc 33.1 g/dL (31.6-35.5); Mean Corpuscular Hemoglobin 33.5 pg (28.0-33.3); Mean Corpuscular Volume 101.2 fL (83.0-100.0); Mean Platelet Volume 10.5 fL (9.4-12.4); Monocytes # 0.5 K/mcL (0.0-1.3); Monocytes % 9.2 %; Red Blood Count 3.46 M/mcL (4.19-5.50); Segmented Neutrophils % 70.7 %; White Blood Count 5.6 K/mcL (4.3-11.1)
[2021-08-06 12:24] LABS: Platelet Count 83 K/mcL (140-400)
[2021-08-06 12:26] LABS: BUN/Creatinine Ratio 48 (6-26); Blood Urea Nitrogen 39 mg/dL (8-23); Carbon Dioxide 29 mEq/L (23-29); Chloride 107 mEq/L (98-107); Glucose 116 mg/dL (70-105); Osmolality,Calculated 302 (280-300); Phosphorous 1.6 mg/dL (2.7-4.5); Potassium 3.5 mEq/L (3.5-5.1); Sodium 141 mEq/L (136-145); eGFR For African Americans > 60 (> 60); eGFR For Non-African Americans > 60 (> 60)
[2021-08-06] MEDS: CarBAMazepine 100 MG TABLET PO SCH ×2 (14:13→22:11)
[2021-08-06] MEDS: Divalproex Sodium 125 MG Sprinkle Capsule (DR) PO SCH ×2 (14:14→22:11)
[2021-08-06] MEDS ORDERED: Haloperidol Lactate 5 MG/ML VIAL IVP ONE (15:14)
[2021-08-06] MEDS ORDERED: Melatonin 3 MG TABLET PO SCH (21:00)
[2021-08-06] MEDS ORDERED: traZODone 50 MG TABLET PO SCH (21:00)
[2021-08-06] MEDS: Famotidine 20 MG TABLET PO SCH (22:47)
[2021-08-07] MEDS: 0.9 % Sodium Chloride 1,000 ML IVC SCH (01:33)
[2021-08-07] MEDS: Doxycycline 100 MG in 0.9 % Sodium Chloride Mini Bag 100 ML IVPB SCH (01:34)
[2021-08-07] MEDS: Piperacillin/Tazobactam 3.375 GM in 0.9 % Sodium Chloride Mini Bag 100 ML IVPB SCH (04:35)
[2021-08-07] MEDS: Famotidine 20 MG TABLET PO SCH (08:10)
[2021-08-07] MEDS: Divalproex Sodium 125 MG Sprinkle Capsule (DR) PO SCH (08:10)
[2021-08-07] MEDS: CarBAMazepine 100 MG TABLET PO SCH (08:11)
[2021-08-07] MEDS ORDERED: polyethylene glycoL 3350 17 GM POWD.PACK PO SCH (09:00)
[2021-08-07] MEDS ORDERED: Loratadine 10 MG TABLET PO SCH (09:00)
[2021-08-07] MEDS ORDERED: Aspirin 81 MG TAB.CHEW PO SCH (09:00)
[2021-08-07] MEDS ORDERED: amLODIPine 5 MG TABLET PO SCH (09:15)
[2021-08-07 10:53] LABS: Basophils # 0.1 K/mcL (0.0-0.2); Basophils % 0.8 %; Eosinophils # 0.1 K/mcL (0.0-0.6); Eosinophils % 1.2 %; Hematocrit 30.1 % (37.5-50.1); Immature Granulocytes % 0.9 % (0-4); Immature Platelets 3.5 % (1.1-6.1); Lymphocytes # 1.3 K/mcL (0.6-4.6); Lymphocytes % 19.2 %; Mean Corpuscular HGB Conc 33.2 g/dL (31.6-35.5); Mean Corpuscular Hemoglobin 33.6 pg (28.0-33.3); Mean Platelet Volume 10.4 fL (9.4-12.4); Monocytes # 0.7 K/mcL (0.0-1.3); Neutrophils # 4.5 K/mcL (1.6-8.9); Red Blood Count 2.98 M/mcL (4.19-5.50); Red Cell Distribution Width 12.3 % (11.5-14.5); Segmented Neutrophils % 67.9 %; White Blood Count 6.6 K/mcL (4.3-11.1)
[2021-08-07 10:58] LABS: Platelet Count 88 K/mcL (140-400)
[2021-08-07 11:17] LABS: BUN/Creatinine Ratio 34 (6-26); Blood Urea Nitrogen 24 mg/dL (8-23); Carbon Dioxide 27 mEq/L (23-29); Chloride 108 mEq/L (98-107); Glucose 92 mg/dL (70-105); Osmolality,Calculated 292 (280-300); Potassium 3.8 mEq/L (3.5-5.1); Sodium 139 mEq/L (136-145); eGFR For African Americans > 60 (> 60); eGFR For Non-African Americans > 60 (> 60)
[2021-08-07 11:51] VITALS: BP 130/53; PULSE 52; TEMP 98.3; O2SAT 97
== END 2021-08-07 13:41 | disposition home or self-care (01) | DRG 193 ==
LOC: EMEROOARM 22:39 → 2ANU 22:39
PROVIDERS: ADMIT Internal Medicine; ATTEND Internal Medicine

== ENCOUNTER 2021-08-19 18:27 | Inpatient (IN) ==
[2021-08-19 20:06] LABS: Basophils % 0.2 %; Eosinophils % 0.2 %; Hematocrit 34.7 % (37.5-50.1); Hemoglobin 11.4 g/dL (12.9-16.9); Immature Granulocytes % 0.7 % (0-4); Lymphocytes # 1.3 K/mcL (0.6-4.6); Mean Corpuscular HGB Conc 32.9 g/dL (31.6-35.5); Mean Corpuscular Hemoglobin 33.6 pg (28.0-33.3); Mean Corpuscular Volume 102.4 fL (83.0-100.0); Monocytes # 0.7 K/mcL (0.0-1.3); Monocytes % 6.9 %; Neutrophils # 7.6 K/mcL (1.6-8.9); Platelet Count 128 K/mcL (140-400); Red Blood Count 3.39 M/mcL (4.19-5.50); Red Cell Distribution Width 12.8 % (11.5-14.5)
[2021-08-19 20:12] LABS: White Blood Count 9.6 K/mcL (4.3-11.1)
[2021-08-19 20:17] LABS: Calcium 9.4 mg/dL (8.6-10.3); Potassium 4.1 mEq/L (3.5-5.1)
[2021-08-19 20:47] LABS: Adenovirus Not Detected (Not Detect); Bordetella Pertussis Not Detected (Not Detect); Chlamydophila pneumoniae Not Detected (Not Detect); Coronavirus 229E Not Detected (Not Detect); Coronavirus HKU1 Not Detected (Not Detect); Coronavirus NL63 Not Detected (Not Detect); Coronavirus OC43 Not Detected (Not Detect); Human Metapneumovirus Not Detected (Not Detect); Human Rhinovirus/Enterovirus Not Detected (Not Detect); Influenza A Subtype 2009 H1 Not Detected (Not Detect); Influenza B Not Detected (Not Detect); Mycoplasma pneumoniae Not Detected (Not Detect); Parainfluenza Virus 1 Not Detected (Not Detect); Parainfluenza Virus 2 Not Detected (Not Detect); Parainfluenza Virus 3 Not Detected (Not Detect); Parainfluenza Virus 4 Not Detected (Not Detect); Respiratory Syncytial Virus Not Detected (Not Detect); SARS-CoV-2 Not Detected (Not Detect)
[2021-08-19] MEDS ORDERED: 0.9 % Sodium Chloride 1,000 ML IVC ONE (21:27)
[2021-08-19] MEDS ORDERED: *HR* LORazepam 2 MG/ML VIAL IVP ONE (21:33)
[2021-08-19] MEDS ORDERED: Melatonin 3 MG TABLET PO PRN (21:41)
[2021-08-19] MEDS ORDERED: Ondansetron 4 MG/2 ML VIAL IVP PRN (21:41)
[2021-08-19] MEDS ORDERED: Acetaminophen 325 MG TABLET PO PRN (21:41)
[2021-08-19] MEDS ORDERED: Naloxone 0.4 MG/ML INJ IVP PRN (21:41)
[2021-08-19] MEDS ORDERED: Saliva Stimulant 44.3ml BOTTLE PO PRN (22:39)
[2021-08-19] MEDS ORDERED: Saline Nasal Spray 44 ML BOTTLE NS PRN (22:39)
[2021-08-19] MEDS ORDERED: D5% in Water 1,000 ML IVC PRN (22:52)
[2021-08-19] MEDS ORDERED: *HR* Dextrose 50 % in Water (Syg) 50 ML SYRINGE IVP PRN (22:52)
[2021-08-19] MEDS ORDERED: Dextrose 4 GM Chewable Tablets PO PRN ×2 (22:52)
[2021-08-19] MEDS ORDERED: Ringers Solution, Lactated 1,000 ML IVC SCH (23:00)
[2021-08-19] MEDS ORDERED: Acetaminophen IV 1,000 MG/100 ML BAG IVPB ONE (23:34)
[2021-08-20] MEDS: Ipratropium/Albuterol Neb 3 ML IH SCH ×5 (01:17→20:47)
[2021-08-20 01:59] LABS: Bilirubin,Urine Negative (Negative); Blood,Urine Trace (Negative); Clarity,Urine Clear (Clear); Color,Urine Yellow (Yellow); Glucose,Urine (UA) Normal (Normal); Hyaline Casts,Urine Few per lpf (None Seen); Ketones,Urine 10 mg/dL (Negative); Leukocyte Esterase,Urine Negative (Negative); Mucus,Urine Few per lpf (None-Few); Nitrite,Urine Negative (Negative); Protein,Urine 50 mg/dL (Neg-Trace); Specific Gravity,Urine > 1.030 (1.010-1.025); Squamous Epithelial Cell,Urine Few per hpf (None-Few); WBC,Urine 0-3 per hpf (0-3)
[2021-08-20] MEDS ORDERED: Piperacillin/Tazobactam 3.375 GM in 0.9 % Sodium Chloride Mini Bag 100 ML IVPB SCH (02:00)
[2021-08-20] MEDS: Dexamethasone Sodium Phos/PF 10 MG/ML VIAL IVP SCH ×4 (02:24→20:08)
[2021-08-20] MEDS: 0.9 % Sodium Chloride 1,000 ML IVC SCH ×2 (02:25→21:41)
[2021-08-20 02:33] LABS: Hematocrit 30.6 % (37.5-50.1); Hemoglobin 10.2 g/dL (12.9-16.9); Mean Corpuscular HGB Conc 33.3 g/dL (31.6-35.5); Mean Corpuscular Hemoglobin 33.6 pg (28.0-33.3); Mean Corpuscular Volume 100.7 fL (83.0-100.0); Mean Platelet Volume 10.3 fL (9.4-12.4); Platelet Count 111 K/mcL (140-400); Red Blood Count 3.04 M/mcL (4.19-5.50); Red Cell Distribution Width 12.7 % (11.5-14.5); White Blood Count 7.2 K/mcL (4.3-11.1)
[2021-08-20 02:41] LABS: Alanine Aminotransferase 6 Units/L (7-52); Albumin 2.9 g/dL (3.5-5.7); Albumin/Globulin Ratio 0.8 (1.1-2.2); Alkaline Phosphatase 42 Units/L (34-104); Aspartate Amino Transferase 13 Units/L (13-39); BUN/Creatinine Ratio 32 (6-26); Bilirubin,Total 0.4 mg/dL (0.3-1.0); Blood Urea Nitrogen 37 mg/dL (8-23); Calcium 9.1 mg/dL (8.6-10.3); Carbon Dioxide 25 mEq/L (23-29); Chloride 105 mEq/L (98-107); Creatine Kinase 40 Units/L (30-223); Globulin 3.8 g/dL (2.4-3.5); Glucose 122 mg/dL (70-105); Magnesium 1.7 mg/dL (1.6-2.6); Osmolality,Calculated 294 (280-300); Phosphorous 2.8 mg/dL (2.7-4.5); Sodium 137 mEq/L (136-145); Total Protein 6.7 g/dL (6.4-8.9); eGFR For African Americans > 60 (> 60); eGFR For Non-African Americans > 60 (> 60)
[2021-08-20 02:49] LABS: INR 1.5; Prothrombin Time 17.1 Seconds (9.4-12.1)
[2021-08-20 03:03] LABS: Ferritin 315 ng/mL (20-250); Iron < 10 mcg/dL (65-175); Transferrin 183 mg/dL (203-362)
[2021-08-20 03:06] LABS: Folate 10.2 ng/mL (3.0-16.0)
[2021-08-20 03:19] LABS: Lymphocytes # 0.6 K/mcL (0.6-4.6); Monocytes # 0.4 K/mcL (0.0-1.3); Neutrophils # 6.2 K/mcL (1.6-8.9); Platelet Estimate Slight Decrease (Normal)
[2021-08-20] MEDS: Acetylcysteine 10% 2 ML INHSOL IH SCH ×4 (03:50→20:47)
[2021-08-20] MEDS ORDERED: Desitin (Zinc Oxide) Max 57 GM TUBE TP PRN (04:20)
[2021-08-20] MEDS ORDERED: Iron Sucrose Complex 400 MG in 0.9 % Sodium Chloride 250 ML IVPB ONE (05:00)
[2021-08-20] MEDS: Oxymetazoline Nasal SPRAY BOTTLE 15ML NS SCH ×3 (05:35→19:46)
[2021-08-20] MEDS: *HR* Heparin 5,000 UNIT/ML VIAL SQ SCH ×2 (05:41→14:00)
[2021-08-20] MEDS ORDERED: Doxycycline 100 MG in 0.9 % Sodium Chloride Mini Bag 100 ML IVPB SCH (06:00)
[2021-08-20] MEDS ORDERED: Isovue-370 500 ML BOTTLE IVP ONE (07:47)
[2021-08-20 10:24] LABS: ABG Base Excess 1 mEq/L (-2 to 3); ABG HCO3 25 mEq/L (21-27); ABG Oxygen Saturation 94 % (95-98); ABG PCO2 37 mmHg (35-45); ABG PH 7.44 pH Units (7.32-7.45); ABG PO2 70 mmHg (85-104); ABG TCO2 26 mEq/L (20-26)
[2021-08-20] MEDS: Artificial Tears SOLN 15 ML BOTTLE BOTH EYES SCH ×2 (10:35→20:02)
[2021-08-20] MEDS: Famotidine 20 MG TABLET PO SCH ×2 (12:00→17:25)
[2021-08-20] MEDS: Aspirin 81 MG TAB.CHEW PO SCH (12:00)
[2021-08-20] MEDS: CarBAMazepine 100 MG TABLET PO SCH ×3 (12:01→20:00)
[2021-08-20] MEDS: Lactobacillus 1 EACH CAP.SPRINK PO SCH ×2 (12:01→20:00)
[2021-08-20] MEDS: polyethylene glycoL 3350 17 GM POWD.PACK PO SCH (12:02)
[2021-08-20] MEDS: Divalproex Sodium 125 MG Sprinkle Capsule (DR) PO SCH ×3 (12:02→20:00)
[2021-08-20] MEDS: amLODIPine 5 MG TABLET PO SCH (12:02)
[2021-08-20] MEDS: Chlorhexidine Rinse 15 ML MOUTHWASH MM SCH ×2 (13:51→20:01)
[2021-08-20 15:51] LABS: Appearance,CSF Bloody (Clear)
[2021-08-20] MEDS ORDERED: [UNRECOGNIZED DRUG - OTHER] IT ONE (16:10)
[2021-08-20] MEDS: Melatonin 3 MG TABLET PO SCH (20:00)
[2021-08-20] MEDS: traZODone 50 MG TABLET PO SCH (20:03)
[2021-08-21] MEDS: *HR* Heparin 5,000 UNIT/ML VIAL SQ SCH ×6 (00:06→22:59)
[2021-08-21] MEDS: Acetylcysteine 10% 2 ML INHSOL IH SCH ×4 (04:28→22:29)
[2021-08-21] MEDS: Ipratropium/Albuterol Neb 3 ML IH SCH ×4 (04:28→22:29)
[2021-08-21] MEDS: Oxymetazoline Nasal SPRAY BOTTLE 15ML NS SCH ×2 (05:23→16:39)
[2021-08-21] MEDS: Dexamethasone Sodium Phos/PF 10 MG/ML VIAL IVP SCH (05:24)
[2021-08-21] MEDS ORDERED: Dexamethasone Sodium Phos/PF 10 MG/ML VIAL IVP SCH (06:00)
[2021-08-21] MEDS: 0.9 % Sodium Chloride 1,000 ML IVC SCH ×2 (07:11→10:17)
[2021-08-21 07:41] LABS: Basophils % 0.2 %; Immature Granulocytes % 1.6 % (0-4)
[2021-08-21 07:43] LABS: White Blood Count 4.4 K/mcL (4.3-11.1)
[2021-08-21 07:44] LABS: Hematocrit 28.7 % (37.5-50.1); Immature Platelets 4.9 % (1.1-6.1); Lymphocytes # 0.3 K/mcL (0.6-4.6); Lymphocytes % 7.8 %; Mean Corpuscular HGB Conc 31.4 g/dL (31.6-35.5); Mean Corpuscular Hemoglobin 33.2 pg (28.0-33.3); Mean Corpuscular Volume 105.9 fL (83.0-100.0); Mean Platelet Volume 10.8 fL (9.4-12.4); Monocytes # 0.2 K/mcL (0.0-1.3); Monocytes % 3.9 %; Neutrophils # 3.8 K/mcL (1.6-8.9); Red Blood Count 2.71 M/mcL (4.19-5.50); Red Cell Distribution Width 12.3 % (11.5-14.5); Segmented Neutrophils % 86.5 %
[2021-08-21 08:02] LABS: Platelet Count 95 K/mcL (140-400)
[2021-08-21 09:04] LABS: Alanine Aminotransferase 6 Units/L (7-52); Albumin 2.7 g/dL (3.5-5.7); Albumin/Globulin Ratio 0.8 (1.1-2.2); Alkaline Phosphatase 44 Units/L (34-104); Aspartate Amino Transferase 18 Units/L (13-39); BUN/Creatinine Ratio 55 (6-26); Bilirubin,Total 0.3 mg/dL (0.3-1.0); Blood Urea Nitrogen 35 mg/dL (8-23); Calcium 8.5 mg/dL (8.6-10.3); Carbon Dioxide 21 mEq/L (23-29); Chloride 108 mEq/L (98-107); Globulin 3.3 g/dL (2.4-3.5); Glucose 144 mg/dL (70-105); Magnesium 2.1 mg/dL (1.6-2.6); Osmolality,Calculated 295 (280-300); Phosphorous 2.2 mg/dL (2.7-4.5); Potassium 3.7 mEq/L (3.5-5.1); Sodium 137 mEq/L (136-145); Thyroid Stimulating Hormone 0.898 mcIU/mL (0.340-5.600); eGFR For African Americans > 60 (> 60); eGFR For Non-African Americans > 60 (> 60)
[2021-08-21] MEDS: Lactobacillus 1 EACH CAP.SPRINK PO SCH ×2 (10:08→20:13)
[2021-08-21] MEDS: polyethylene glycoL 3350 17 GM POWD.PACK PO SCH (10:08)
[2021-08-21] MEDS: Chlorhexidine Rinse 15 ML MOUTHWASH MM SCH ×2 (10:08→20:12)
[2021-08-21] MEDS: Divalproex Sodium 125 MG Sprinkle Capsule (DR) PO SCH ×3 (10:08→20:13)
[2021-08-21] MEDS: Famotidine 20 MG TABLET PO SCH ×2 (10:09→16:38)
[2021-08-21] MEDS: CarBAMazepine 100 MG TABLET PO SCH ×3 (10:09→20:12)
[2021-08-21] MEDS: Aspirin 81 MG TAB.CHEW PO SCH (10:09)
[2021-08-21] MEDS: Artificial Tears SOLN 15 ML BOTTLE BOTH EYES SCH ×2 (10:10→20:11)
[2021-08-21] MEDS: amLODIPine 5 MG TABLET PO SCH (10:10)
[2021-08-21] MEDS: Ampicillin/Sulbactam 3,000 MG in 0.9 % Sodium Chloride Mini Bag 100 ML IVPB SCH ×3 (12:03→23:12)
[2021-08-21] MEDS ORDERED: E-Z-HD (BARIUM SULF) SUSPENSION PO ONE (13:51)
[2021-08-21] MEDS ORDERED: E-Z-PAQUE (BARIUM SULF) SUSP 1 BOTTLE PO ONE (13:51)
[2021-08-21] MEDS: Melatonin 3 MG TABLET PO SCH (20:13)
[2021-08-21] MEDS: traZODone 50 MG TABLET PO SCH (20:13)
[2021-08-21 23:21] VITALS: PULSE 71; O2SAT 93
[2021-08-22 03:25] VITALS: BP 130/50; TEMP 97.8
[2021-08-22] MEDS: Ipratropium/Albuterol Neb 3 ML IH SCH ×2 (03:59→10:18)
[2021-08-22] MEDS: Acetylcysteine 10% 2 ML INHSOL IH SCH ×2 (04:01→10:18)
[2021-08-22] MEDS: *HR* Heparin 5,000 UNIT/ML VIAL SQ SCH (04:57)
[2021-08-22] MEDS: Oxymetazoline Nasal SPRAY BOTTLE 15ML NS SCH (05:23)
[2021-08-22] MEDS: Ampicillin/Sulbactam 3,000 MG in 0.9 % Sodium Chloride Mini Bag 100 ML IVPB SCH (05:23)
[2021-08-22 06:13] LABS: Basophils % 0.2 %; Hematocrit 27.2 % (37.5-50.1); Hemoglobin 8.9 g/dL (12.9-16.9); Immature Granulocytes % 3.4 % (0-4); Lymphocytes # 0.9 K/mcL (0.6-4.6); Lymphocytes % 13.2 %; Mean Corpuscular HGB Conc 32.7 g/dL (31.6-35.5); Mean Corpuscular Hemoglobin 33.2 pg (28.0-33.3); Mean Corpuscular Volume 101.5 fL (83.0-100.0); Mean Platelet Volume 10.8 fL (9.4-12.4); Monocytes # 0.4 K/mcL (0.0-1.3); Monocytes % 6.7 %; Neutrophils # 4.9 K/mcL (1.6-8.9); Nucleated Red Blood Cells 0.5 /100 WBC (0); Platelet Count 141 K/mcL (140-400); Red Blood Count 2.68 M/mcL (4.19-5.50); Red Cell Distribution Width 12.6 % (11.5-14.5); Segmented Neutrophils % 76.5 %; White Blood Count 6.4 K/mcL (4.3-11.1)
[2021-08-22 06:36] LABS: Alanine Aminotransferase 37 Units/L (7-52); Albumin 2.7 g/dL (3.5-5.7); Albumin/Globulin Ratio 0.9 (1.1-2.2); Alkaline Phosphatase 37 Units/L (34-104); Aspartate Amino Transferase 49 Units/L (13-39); BUN/Creatinine Ratio 56 (6-26); Bilirubin,Total 0.3 mg/dL (0.3-1.0); Blood Urea Nitrogen 31 mg/dL (8-23); Calcium 8.4 mg/dL (8.6-10.3); Carbon Dioxide 27 mEq/L (23-29); Chloride 110 mEq/L (98-107); Globulin 3.1 g/dL (2.4-3.5); Glucose 122 mg/dL (70-105); Osmolality,Calculated 298 (280-300); Potassium 3.9 mEq/L (3.5-5.1); Sodium 140 mEq/L (136-145); Total Protein 5.8 g/dL (6.4-8.9); eGFR For African Americans > 60 (> 60); eGFR For Non-African Americans > 60 (> 60)
[2021-08-22] MEDS ORDERED: Loratadine 10 MG TABLET PO SCH (09:00)
[2021-08-22] MEDS: Aspirin 81 MG TAB.CHEW PO SCH (09:38)
[2021-08-22] MEDS: amLODIPine 5 MG TABLET PO SCH (09:38)
[2021-08-22] MEDS: CarBAMazepine 100 MG TABLET PO SCH (09:39)
[2021-08-22] MEDS: Lactobacillus 1 EACH CAP.SPRINK PO SCH (09:40)
[2021-08-22] MEDS: Artificial Tears SOLN 15 ML BOTTLE BOTH EYES SCH (09:40)
[2021-08-22] MEDS: polyethylene glycoL 3350 17 GM POWD.PACK PO SCH (09:40)
[2021-08-22] MEDS: Chlorhexidine Rinse 15 ML MOUTHWASH MM SCH (09:40)
[2021-08-22] MEDS: Famotidine 20 MG TABLET PO SCH (09:40)
[2021-08-23 10:29] LABS: Mycoplasma pneumoniae IgG 0.69 U/L (<=0.09)
== END 2021-08-22 11:16 | disposition home or self-care (01) | DRG 871 ==
LOC: 3BNU 18:27 → EMEROOARM 18:27 → SUATTDRO 21:49 → 3BNU 22:34
PROVIDERS: ADMIT Internal Medicine; ATTEND Internal Medicine